=== PATIENT | male | born 1955 | race Caucasian/White ===

== ENCOUNTER → 2022-02-04 | Outpatient (CLI) | payer MEDICARE ==
[~2022-02-04] MED LIST: ANAPROX DS550 MG PO; KEFLEX500 MG PO; LIPITOR20 MG PO; LISINOPRIL5 MG PO; LYRICA300 MG; PHARMASSURE FO0.4 MG PO; TOBREX 5 ML5 ML OPH; ZANTAC150 MG PO
== END | disposition home or self-care (01) ==
LOC: CARD 00:31
PROVIDERS: ATTEND Internal Medicine Cardiovascular Disease
DX: I11.9 Hypertensive heart disease without heart failure (principal); R53.83 Other fatigue; R06.00 Dyspnea, unspecified; E78.5 Hyperlipidemia, unspecified; G62.9 Polyneuropathy, unspecified; Z72.0 Tobacco use

== ENCOUNTER → 2024-01-28 | Outpatient (CLI) | payer MEDICARE | END | disposition home or self-care (01) | LOC: RAD 14:03 | PROVIDERS: ATTEND Physician Assistant | DX: M47.816 Spondylosis without myelopathy or radiculopathy, lumbar region (principal); I70.0 Atherosclerosis of aorta ==

== ENCOUNTER → 2024-07-20 | Outpatient (CLI) | payer MEDICARE | END | disposition home or self-care (01) | LOC: MRI 02:16 | PROVIDERS: ATTEND Anesthesiology | DX: M43.16 Spondylolisthesis, lumbar region (principal); M47.26 Other spondylosis with radiculopathy, lumbar region; M48.061 Spinal stenosis, lumbar region without neurogenic claudication; M53.3 Sacrococcygeal disorders, not elsewhere classified; M46.1 Sacroiliitis, not elsewhere classified; M48.50XA Collapsed vertebra, not elsewhere classified, site unspecified, initial encounter for fracture; M51.379 Other intervertebral disc degeneration, lumbosacral region without mention of lumbar back pain or lower extremity pain ==

== ENCOUNTER 2025-01-28 13:06 | Emergency (ER) | payer MEDICARE ==
[~2025-01-28] VITALS: Ht 187.9 cm; Wt 92.5 kg
[2025-01-28] MEDS ORDERED: TAMSULOSIN HCL0.4 MG PO (13:16)
[2025-01-28] MEDS ORDERED: AMLODIPINE BESYL5 MG PO (13:17)
[2025-01-28] MEDS ORDERED: Tdap Vaccine 0.5 ML SYR (Adult Vaccine) IM ONE (13:25)
[2025-01-28] MEDS ORDERED: CEPHALEXIN500 M1 PO (14:17)
[2025-01-28] MEDS ORDERED: CEPHALEXIN 500 MG CAP PO ONE (14:20)
== END 2025-01-28 14:47 | disposition home or self-care (01) ==
LOC: ED 13:06
DX: S92.421A Displaced fracture of distal phalanx of right great toe, initial encounter for closed fracture (principal); S91.111A Laceration without foreign body of right great toe without damage to nail, initial encounter; Z79.899 Other long term (current) drug therapy; W18.09XA Striking against other object with subsequent fall, initial encounter; Y93.89 Activity, other specified; Y92.89 Other specified places as the place of occurrence of the external cause; Y99.8 Other external cause status